=== PATIENT | female | born 1955 | race Caucasian/White ===

== ENCOUNTER → 2024-06-07 08:33 | Outpatient (REF) | payer MEDICARE, OTHER, SELFPAY | LOC: RAD 08:33 | PROVIDERS: ATTENDING PHYSICIAN Family Medicine | DX: R74.8 Abnormal levels of other serum enzymes (principal); R74.01 Elevation of levels of liver transaminase levels | CPT/HCPCS: 76700 ==

== ENCOUNTER → 2024-07-13 13:47 | Outpatient (REF) | payer MEDICARE, OTHER, SELFPAY | LOC: WDC 13:47 | PROVIDERS: ATTENDING PHYSICIAN Family Medicine | DX: Z12.31 Encounter for screening mammogram for malignant neoplasm of breast (principal) | CPT/HCPCS: 77063; 77067 ==